=== PATIENT | female | born 1960 | race Caucasian/White ===

== ENCOUNTER 2021-02-09 21:46 | Emergency (ER) | payer OTHER ==
[~2021-02-09 21:46] MED LIST: IBUPROFEN800 MG PO; REQUIP1 MG PO; SYNTHROID25 MCG PO
[2021-02-09 22:10] LABS: BASOPHIL 0.9 % (0-2); EOSINOPHIL 2.8 % (0-5); HCT 41.7 % (37.0-47.0); HGB 14.4 g/dl (12.5-16.0); LYMPHOCYTE 19.4 % (15-48); MCH 29.9 pg (25.0-31.0); MCHC 34.5 g/dL (32.0-36.0); MCV 86.5 fL (78.0-100.0); MONOCYTE 7.3 % (0-12); MPV 9.7 fL (6.0-9.5); NEUTROPHIL 69.4 % (41-80); NRBC 0; PLT 195 K/uL (150-400); RBC 4.82 M/uL (4.20-5.40); RDW 13.5 % (11.5-14.0); WBC 9.4 K/uL (4.0-10.5)
[2021-02-09 22:25] LABS: ALBUMIN 3.9 g/dL (3.4-5.0); BILIRUBIN - TOTAL 0.5 mg/dL (0.2-1.0); BUN/CREAT RATIO (CALC) 32.7 RATIO; CREATININE 0.55 mg/dL (0.51-0.95); GLOBULIN (CALCULATION) 3.8 g/dL; TOTAL PROTEIN 7.7 g/dL (6.4-8.2)
[2021-02-09 22:33] LABS: INR 1.1 (0.9-1.2); PROTHROMBIN TIME 13.5 SECONDS (11.4-13.6); PTT 36.2 SECONDS (22.2-34.7)
[2021-02-09 22:34] LABS: D-DIMER 0.62 ug/mLFEU (0.00-0.41)
== END 2021-02-10 02:45 | disposition home or self-care (01) ==
LOC: FER 21:46
PROVIDERS: Emergency Medicine Emergency Medical Services
DX: R07.89 Other chest pain (principal)
CPT/HCPCS: 36415; 71045; 71275; 80053; 83880; 84484; 85025; 85379; 85610; 85730; 93005; J1885; J2270; J2405; J2930; Q9967

== ENCOUNTER → 2021-06-08 | Day surgery (SDC) | payer OTHER ==
[~2021-06-08] VITALS: Ht 160 cm; Wt 99.8 kg
[~2021-06-08] MED LIST changes: +BACLOFEN 10MG T10 MG PO; +COQ-1030 MG PO; +GLUCOSAMINE1000 MG PO; +RYBELSUS7 MG PO; +VITAMIN B122500 MCG PO; +VITAMIN D310 MC3 PO; +VITAMIN E90 MG PO
== END | disposition home or self-care (01) ==
LOC: FAS 09:50
DX: Z12.11 Encounter for screening for malignant neoplasm of colon (principal); M19.90 Unspecified osteoarthritis, unspecified site; E03.9 Hypothyroidism, unspecified; G25.81 Restless legs syndrome; Z87.891 Personal history of nicotine dependence; Z79.899 Other long term (current) drug therapy
CPT/HCPCS: J2250; J7120